=== PATIENT | male | born 1960 | race Caucasian/White ===

== ENCOUNTER → 2019-10-27 | Outpatient (CLI) | payer OTHER ==
[~2019-10-27] MED LIST: GLUCOPHAGE XR500 MG PO; GLUCOTROL XL2.5 MG PO; IBUPROFEN 200200 M1 PO; ZOCOR40 MG PO
== END ==
LOC: M.MRI 11:30
DX: S83.241A Other tear of medial meniscus, current injury, right knee, initial encounter (principal); S83.281A Other tear of lateral meniscus, current injury, right knee, initial encounter; M17.11 Unilateral primary osteoarthritis, right knee; X58.XXXA Exposure to other specified factors, initial encounter; Y93.89 Activity, other specified; Y92.89 Other specified places as the place of occurrence of the external cause; Y99.8 Other external cause status

== ENCOUNTER 2019-11-21 06:50 | Inpatient (IN) | payer OTHER ==
[2019-11-10 12:56] LABS: HEMATOCRIT 45.2 % (42.0-52.0); HEMOGLOBIN 15.8 gm/dL (14.0-18.0); MCH 31.2 pg (26.0-34.0); MPV 10.3 fl. (7.2-11.1); RBC 5.07 mil/uL (4.50-6.00); RDW-CV 13.3 % (10.5-14.5); WBC 5.5 thou/uL (4.0-11.0)
[2019-11-10 12:56] LABS: URINE BILIRUBIN NEGATIVE (Negative); URINE BLOOD NEGATIVE (Negative); URINE CLARITY CLEAR; URINE COLOR YELLOW; URINE GLUCOSE-RANDOM 3+ (Negative); URINE KETONES NEGATIVE (Negative); URINE LEUKOCYTES-REFLEX NEGATIVE (Negative); URINE NITRITE-REFLEX NEGATIVE (Negative); URINE PROTEIN NEGATIVE (Negative); URINE UROBILINOGEN 0.2 E.U./dl (0.2-1.0)
[2019-11-10 13:10] LABS: PROTIME 10.6 Seconds (9.20-11.50)
[2019-11-10 13:17] LABS: ALBUMIN 3.7 g/dL (3.4-5.0); CALCIUM 8.4 mg/dL (8.5-10.1); CREATININE 1.2 mg/dL (0.6-1.3); TOTAL BILIRUBIN 0.3 mg/dL (<0.1-1.0); TOTAL PROTEIN 6.7 g/dL (6.4-8.2)
[~2019-11-21] VITALS: Ht 170.2 cm; Wt 90.7 kg
[~2019-11-21 06:50] MED LIST changes: +HUMALOG100 UNIT/1 SUBQ; +NAPROSYN500 MG PO; +NEXIUM 24HR20 M2 PO; +ULTRAM 50MG TAB50 MG PO
[2019-11-21 12:02] VITALS: BP 130/82
[2019-11-21 15:38] VITALS: BP 116/78
--- NOTE | 2019-11-21 16:17 | NUR ---
PT TRANSFERRED TO ROOM 117 FROM PACU AROUND 1135. PT IS S/P RT TKA. POLAR CARE AND FOOT PUMPS IN PLACE. ELDA HOSE TO LLE. PT ON 3L O2/NC POST OP FROM PACU. CO2 MONITOR IN PLACE. PRN OXY GIVEN X1 AT THIS TIME FOR PAIN MANAGEMENT. PT REPORTS EFFECTIVE. NO OTHER CONCERNS AT THIS TIME. CLWR. WCTM.
[2019-11-21 20:00] VITALS: BP 130/79
--- NOTE | 2019-11-21 20:24 | NUR ---
PT. REFUSING END TIDAL CO2 MONITOR. BLOOD GLUCOSE 482, DR. BLOUNT NOTIFIED. PT. STATED THIS SAME THING HAPPENED TO HIM AFTER HIS PREVIOUS SURGERY AND HIS STEM THRESHING MACHINE OPERATOR STATED THAT IT IS DUE TO THE SHOCK OF THE SURGERY AND SHOULD SUBSIDE. WILL CONTINUE TO MONITOR.
[2019-11-22] VITALS: BP 108/69
[2019-11-22 03:06] LABS: HEMOGLOBIN 13.5 gm/dL (14.0-18.0); MCH 30.7 pg (26.0-34.0); MCHC 34.5 g/dL (28.0-37.0); MPV 10.1 fl. (7.2-11.1); NUCLEATED RBCS 0 /100WBC; PLATELET COUNT* 136 thou/uL (150-400); RBC 4.38 mil/uL (4.50-6.00); RDW-CV 13.5 % (10.5-14.5); WBC 16.6 thou/uL (4.0-11.0)
[2019-11-22 04:00] VITALS: BP 108/69
[2019-11-22 05:17] LABS: ABSOLUTE MONOCYTES 0.8 thou/uL (0.0-1.2); ABSOLUTE NEUTROPHILS 14.8 thou/uL (1.6-8.1); PLATELET ESTIMATE DECREASED
[2019-11-22 05:18] LABS: ANISOCYTOSIS 1+; POIKILOCYTOSIS 1+
--- NOTE | 2019-11-22 06:39 | NUR ---
PT. C/O PAIN THROUGHOUT SHIFT. OXYCODONE IR AND TRAMADOL GIVEN PER PRN ORDERS. POLAR PACK IN PLACE. PT. REFUSED CPM UNTIL "LATER". WILL CONTINUE TO MONITOR.
[2019-11-22 08:00] VITALS: BP 122/74
[2019-11-22 11:22] VITALS: BP 122/74
[2019-11-22] MEDS ORDERED: METAMUCIL0.4 GM PO (11:38)
[2019-11-22] MEDS ORDERED: PERCOCET 5-3251 EACH PO (11:45)
--- NOTE | 2019-11-22 12:01 | NUR ---
AM ASSESSMENT AND VITAL SIGNS COMPLETED DOCUMENTED. HEMOVAC DRAIN WAS DC'D BY THE ORTHO RESIDENT, DRESSING TO SITE IS C/D/I. PT HAS WORKED WITH THERAPY AND THEY HAVE APPROVED HIS DISCHARGE. PRN PAIN MEDICATIONS HAVE BEEN EFFECTIVE.
--- NOTE | 2019-11-22 13:00 | NUR ---
SPOKE WITH PT AND GIRL FRIEND,DARLENE. HE WILL BE STAYING WITH HER SHE CAN BE WITH HIME 12/04. HE WILL NEED A FWW FOR HOME USE. [employer] OKD HIM TO HAVE ONE THROUGH HIS INSURANCE. FAXED HER ORDER. EXPLIANED TO PT.THAT THERAPY WILL DISPENSE ONE PRIOR TO DISCHARGE. CM HAD CALLED IN [facility] PRESCRIPTION WRITTEN TO PTS PHARMACY. COPAY WAS $70. HE SAID HE COULD NOT AFFORD THIS. JOSUE FOOTE INFORMED. HE WOULD LIKE TO DO P.T. WITH HOME HEALTH INITIALLY AND CHOSE [facility] . FAXED REFERRAL AND DISCHARGE ORDERS AND GIRLFRIENDS ADDRESS TO AVE/[facility] . THEY WILL CALL HIM TOMORROW. PT.SAID HE IS NORMALLY INDEPENDENT AT HOME. ALSO HAS A SUPPORTIVE DAUGHTER.
--- NOTE | 2019-11-22 14:10 | NUR ---
PT PROVIDED WITH DISCHARGE INSTRUCTIONS AND PRESCRIPTIONS. WALKER, CPM, POLAR PACK AND BELONGINGS WITH PT AT DISCHARGE. PT DISCHARGED HOME IN STABLE CONDITION.
--- NOTE | 2019-11-22 17:09 | NUR ---
RECIEVED O.T. EVAL AND TX ORDER. WILL DEFER TO P.T. AT THIS TIME. PLEASE ORDER FURTHER O.T. SERVICES IF NEEDED.
--- NOTE | 2019-11-24 14:54 | EKG ---
[place] [address] ELECTROCARDIOGRAM REPORT Name: JACLYN BAZZI Room: [address] IN [facility].#: [id number] Admission: 11/21/19 Attend Phys: Yasmany Wise Discharge: 11/22/19 Date of : 64 Date of Service: 11/10/19 1303 Report #: [id number] THIS REPORT FOR: //name// [facility] Test Date: 2019-11-10 Test Time: 13:03:51 Pat Name: JACLYN BAZZI Department: Room: Gender: M Clinic Manager: : 1960 Requested By: Dylan Maldonado Order Number: [id number] Mike MD: Usman Franz Measurements Intervals [place] Rate: 66 P: 12 PA: 143 QRS: 21 QRSD: 90 T: 6 QT: 408 QTc: 428 Interpretive Statements Sinus rhythm Abnormal R-wave progression, early transition Abnormal inferior Q waves No previous ECG available for comparison Electronically Signed On 11-10-2019 17:41:41 DESIGN MANAGER by Usman Franz [email or web address] <ELECTRONICALLY SIGNED> By: Usman Franz MD, [facility] 11/10/19 1741 1303 1303 Usman Franz MD, [facility] /EPI
--- NOTE | 2019-11-28 08:51 | OP ---
[facility] [address] [place] [address] OPERATIVE REPORT Name: BAZZIJACLYNRussell ZIMMERMAN Room: [address] M.R.#: [id number] Admission: 11/21/19 Attend Phys: Constance Merida Discharge: 11/22/19 Date of : 64 Report #: [id number] THIS REPORT FOR: //name// cc: Ford Low Brad DO ~ THIS REPORT FOR: //name// CC: Ford Wise DATE OF SERVICE: 11/21/2019 PREOPERATIVE DIAGNOSIS: Right knee osteoarthritis. POSTOPERATIVE DIAGNOSIS: Right knee osteoarthritis. PROCEDURE: Right total knee arthroplasty. SURGEON: Dylan Maldonado II, DO DOG OR HORSE RACING OFFICIAL: JAYME Hilario. ANESTHESIA: General endotracheal. ESTIMATED BLOOD LOSS: 50 mL. ANTIBIOTICS: Ancef preoperatively. DRAINS: Medium Hemovac. COMPLICATIONS: None. CONDITION OF THE PATIENT: Stable to recovery room. IMPLANTS: Listed in operative record and progress note. BRIEF HISTORY: The patient is seen in the preoperative area. Preoperative H and P was performed. Site was marked, questions were answered. Risks and benefits were discussed with the patient in detail about surgery. The patient wished to proceed, assuming all risks. DESCRIPTION OF PROCEDURE: The patient was taken to the operative suite and placed supine on the operating table, given appropriate anesthesia. A well-padded tourniquet was applied to the upper thigh, which was inflated to 300 mmHg after gravity exsanguination. The operative knee was sterilely prepped and [facility] [address] [place] [address] OPERATIVE REPORT Name: JACLYN BAZZI Room: [address] M.R.#: [id number] Admission: 11/21/19 Attend Phys: Constance Merida Discharge: 11/22/19 Date of : 64 Report #: [id number] draped. Surgery began by midline incision. This was carried down to the subcutaneous tissues. A medial parapatellar arthrotomy was performed and carried down to bone. Patella was then everted and excess soft tissues were removed from around the femur. Femoral cutting block was then applied, checked with a drop neema for rotational alignment, pinned in appropriate position and appropriate cuts were made. A 4-in-1 cutting block was then applied, checked for rotational alignment, pinned in appropriate position and appropriate cuts were made. The tibia was then exposed. Excess meniscus was removed. Retractor was placed on collateral ligaments. The tibial cutting block was then applied, pinned in appropriate position, checked with a drop neema for rotational alignment and slope and appropriate cut was made. Tibial bone was removed. Tibial base plate was then applied, checked for rotational alignment with the drop neema and pinned in appropriate position. Femur was then applied and box cut was reamed. This was then trialed with appropriate spacer, which showed excellent fit and fill and excellent stability of knee through all range of motion. The patella was reamed in appropriate fashion and sized to appropriate size. Three peg holes were drilled and it was then trialed and showed excellent flexion and extension and excellent tracking of the patella within the groove. These trials were then removed. The tibia was punched in appropriate fashion. Bone ends were cleansed with Pulsavac irrigation and cement was mixed and applied to final implants. These were then malleted into position and held the knee in extension and compressed to allow cement to cure. After it cured, excess was removed utilizing a [place] and osteotome. Wound was then copiously irrigated and the final spacer was then malleted into position. Tourniquet was deflated. Hemostasis was obtained with electrocautery. Pain cocktail was injected. PRP gel was sprayed throughout internal aspects of the knee. Medium Hemovac drain was applied. Capsule was closed with #2 FiberWire and #1 Vicryl in [id number] fashion. Skin was closed with 2-0 Vicryl and running 3-0 Monocryl. Dermabond and sterile dressing applied. Yadiel wrap and PolarCare applied. The patient transported to recovery room in stable condition. Counts were correct throughout the procedure. <ELECTRONICALLY SIGNED> By: Dylan Maldonado II, DO 11/28/19 0851 [id number] Maldonado II, DO /nt
== END 2019-11-22 14:12 | disposition home health service (06) | DRG 470 ==
LOC: M.PRE → M.TBA 06:50 → M.SUR 08:34 → EDSTATUS 08:34 → M.PRE 08:43 → M.ORTHSURG 11:48 → M.PRE 14:44 → M.ORTHSURG 11-22 14:12
PROVIDERS: Orthopaedic Surgery; ADMIT Internal Medicine
PROC: 3E0T3BZ Introduction of Anesthetic Agent into Peripheral Nerves and Plexi, Percutaneous Approach (ICD-10-PCS; principal; 2019-11-21)
PROC: 0SRC0J9 Replacement of Right Knee Joint with Synthetic Substitute, Cemented, Open Approach (ICD-10-PCS; principal; 2019-11-21)
DX: M17.11 Unilateral primary osteoarthritis, right knee (principal); M19.90 Unspecified osteoarthritis, unspecified site; E10.9 Type 1 diabetes mellitus without complications; Z88.1 Allergy status to other antibiotic agents; Z98.1 Arthrodesis status; Z87.891 Personal history of nicotine dependence; Z98.52 Vasectomy status

== ENCOUNTER → 2020-01-03 | Day surgery (SDC) | payer OTHER ==
[~2020-01-03] MED LIST changes: +LIPITOR 20 MG T20 M1 PO; +METAMUCIL0.4 GM PO; +PERCOCET 5-3251 EACH PO
--- NOTE | ~2020-01-03 | OP ---
[address] [address] OPERATIVE REPORT Name: JACLYN BAZZI Room: [facility].#: [id number] Admission: 01/03/20 Attend Phys: Dylan Maldonado II Discharge: Date of : 64 Report #: [id number] THIS REPORT FOR: //name// cc: Ford Low Brad DO ~ THIS REPORT FOR: //name// CC: Ford Maldonado DATE OF SERVICE: 01/03/2020 PREOPERATIVE DIAGNOSIS: Right knee adhesive capsulitis, status post total knee arthroplasty. POSTOPERATIVE DIAGNOSIS: Right knee adhesive capsulitis, status post total knee arthroplasty. PROCEDURE: Right knee manipulation under anesthesia. SURGEON: Dylan Maldonado II, DO ROD MILL OPERATOR: JAYME Hilario ANESTHESIA: Per operative record. ESTIMATED BLOOD LOSS: Minimal. ANTIBIOTICS: Per operative record. DRAINS: None. COMPLICATIONS: None. CONDITION OF THE PATIENT: Stable to recovery room. DESCRIPTION OF PROCEDURE: The patient was taken to the operative suite and placed supine on the operating table, given appropriate anesthesia. The patient's right knee was evaluated, which showed from 3 degrees to 80 degrees of range of motion preoperatively. After the patient had achieved sedation, the right knee was then taken and placed upon rolled up blankets and a full extension press was placed across the knee, nieves and tibia to allow the knee to get to full 0 degrees. The knee was then gently flexed back to approximately 140 degrees. Pictures of this were taken of both preoperative and postoperative range of motions. The patient had smooth range of motion at the completion of this. Gentle scar massage was performed along the anterior incision as well and [facility] [address] [place] [address] OPERATIVE REPORT Name: JLUISJACLYN ZIMMERMAN Room: [facility].#: [id number] Admission: 01/03/20 Attend Phys: Dylan Maldonado II Discharge: Date of : 64 Report #: [id number] the patient tolerated the procedure well and was transported to recovery room in stable condition. By: [id number] Maldonado II, DO /nt
[2020-01-03 09:19] LABS: HEMATOCRIT 42.6 % (42.0-52.0); HEMOGLOBIN 14.4 gm/dL (14.0-18.0); MCH 29.9 pg (26.0-34.0); MCHC 33.9 g/dL (28.0-37.0); MCV 88.3 fL (80.0-100.0); MPV 9.5 fl. (7.2-11.1); RBC 4.82 mil/uL (4.50-6.00); RDW-CV 13.4 % (10.5-14.5); WBC 7.1 thou/uL (4.0-11.0)
[2020-01-03 09:24] LABS: CALCIUM 8.8 mg/dL (8.5-10.1); CREATININE 1.1 mg/dL (0.6-1.3); POTASSIUM 4.1 mmol/L (3.5-5.1)
[2020-01-03 12:25] VITALS: BP 125/84
== END | disposition home or self-care (01) ==
LOC: M.SUR 08:53
PROVIDERS: Orthopaedic Surgery
DX: M76.891 Other specified enthesopathies of right lower limb, excluding foot (principal); M17.11 Unilateral primary osteoarthritis, right knee; Z96.651 Presence of right artificial knee joint; Z98.890 Other specified postprocedural states; Z79.899 Other long term (current) drug therapy; Z88.8 Allergy status to other drugs, medicaments and biological substances